=== PATIENT | female | born 1995 | race Caucasian/White ===

== ENCOUNTER 2017-03-22 16:28 | Emergency (ER) | payer BC, OTHER ==
[2017-03-22 16:34] VITALS: TEMP 99
--- NOTE | 2017-03-22 17:08 | EDPHY ---
H & P Stated Complaint: Inflammation @ port x 2 wks Time Seen by Provider: 03/22/17 17:07 - Personal History LMP (Females 10-55): 1-7 Days Ago Current Tetanus Diphtheria and Acellular Pertussis (TDAP): Yes - Medical/Surgical History Other PMH: gastroparesis. tubal ligation. Ellers-Danlow syndrome. chronic headaches - Social History Smoking Status: Never smoked Constitutional: Initial Vital Signs Temperature (C) 37.2 C 03/22/17 16:30 Heart Rate 103 H 03/22/17 16:30 Respiratory Rate 18 03/22/17 16:30 Blood Pressure 121/83 H 03/22/17 16:30 O2 Sat (%) 98 03/22/17 16:30 O2 Delivery Mode Room Air Allergies/Adverse Reactions: nystatin Allergy (Intermediate, Verified 03/22/17 16:35) disroentation/confusion clonazepam [From Klonopin] Allergy (Mild, Verified 03/22/17 16:34) Itching levofloxacin [From Levaquin] Allergy (Mild, Verified 03/22/17 16:36) joint pain,mood effects ranitidine [From Zantac] Allergy (Mild, Verified 03/22/17 16:34) Itching latex Allergy (Unknown, Verified 03/22/17 16:36) dermabond Allergy (Uncoded 03/22/17 16:36) paper tape Allergy (Uncoded 03/22/17 16:36) Home Medications: Medication Instructions Recorded Albuterol Sulfate [Proventil Hfa] 6.7 gm IH 03/22/17 Amphet Asp and D/Amphet [Adderall 10 mg PO 03/22/17 10 MG (*)] Baclofen [Baclofen 10 mg (*)] 10 mg PO TID 03/22/17 Control Pill 03/22/17 Chlorzoxazone [Lorzone] 375 mg PO TID 03/22/17 Diazepam [Valium 5 MG (*)] 5 mg PO 03/22/17 Doxycycline Hyclate 100 mg PO BID #20 tablet 03/22/17 LORazepam [Ativan (*)] 1 mg PO 03/22/17 Levalbuterol 0.63 mg [Xopenex 0.63 mg IH 03/22/17 0.63MG Neb (*)] Mupirocin 2% [Bactroban 2%] 15 gm TP BID #1 oint 03/22/17 Ns [NS IV 1000ml (*)] 0 ml IV CONT 03/22/17 Ondansetron HCl Pf [Zofran 4 mg 2 mg IV Q4 03/22/17 Inj (*)] tiZANidine HCL [Zanaflex] 4 mg PO 03/22/17 Medical Decision Making ED Course/Re-evaluation: CHIEF COMPLAINT: Cyst over port HISTORY OF PRESENT ILLNESS: The patient is a 21 y/o female with a history of Moon's Danlos syndrome and gastroparesis complaining of a cyst overlying her port. She uses her port to self-administer IV fluids and Zofran five times per week to treat her gastroparesis. She has been unable to access the port since developing what she believes is a cyst. She has previously developed cystic acne on her chest, but never over the port. She has treated it with chlorhexidine washes and Neosporin without improvement. She has since developed some mild pain "radiating into the port." She notes some recent nasal congestion , but denies systemic illness symptoms. REVIEW OF SYSTEMS: A 10 point review of systems was performed and is negative with the exception of the elements mentioned in the history of present illness. PHYSICAL EXAM: HR, BP, O2 Sat, RR. Temp noted General Appearance: Alert, well hydrated, appropriate, and non-toxic appearing. Head: Atraumatic without scalp tenderness or obvious injury Eyes: Pupils equal, round, reactive to light and accommodation, EOMI, no trauma , no injection. Nose: Atraumatic, no rhinorrhea, clear. Throat: There is no erythema or exudates, no lesions, normal tonsils, mucus membranes moist. Neck: Supple, nontender, no lymphadenopathy. Respiratory: No retractions, no distress, no wheezes, and no accessory muscle use. Lungs are clear to auscultation bilaterally. Cardiovascular: Regular rate and rhythm, no murmurs, rubs, or gallops. Good capillary refill all extremities. Gastrointestinal: Abdomen is soft, nontender, non-distended, no masses, no rebound, no guarding, no peritoneal signs. Musculoskeletal: Normal active ROM of all extremities, atraumatic. Neurological: Alert, appropriate, and interactive. The patient has non-focal cranial nerves, motor, sensory, and cerebellar exam. Skin: No rashes, good turgor, no nodules on palpation. Left chest port with small overlying indurated and tender area. Past medical history: Moon's Danlos syndrome, gastroparesis Past surgical history: Port placed by vascular clinic in [place] Family history: noncontributory Social history: Friend at bedside. Nonsmoker. DIFFERENTIAL DIAGNOSIS: The differential diagnosis for the patient's symptoms included but was not limited to cystic acne, cellulitis, port complication, abscess. MEDICAL DECISION MAKING: This is a 21 y/o female with a history of Ehler's Danlos syndrome and gastroparesis who presents with a small indurated area over her left chest port that has become painful and obstructive over the last 2 weeks. No evidence of systemic illness. I think it's likely she has a small localized infection at the site and will prescribe doxycycline and topical mupirocin. She will be referred to Dr. Vargas for follow up. Return precautions discussed. 1721: Consulted with Dr. Vargas, surgeon. She will see patient at 3:15pm on Thursday in her office. - Data Points Medications Given: Discontinued Medications Doxycycline Hyclate (Doxycycline Hyclate) 100 mg PO EDNOW ONE PRN Reason: Protocol Stop: 03/22/17 17:22 Last Admin: 03/22/17 17:34 Dose: Not Given Departure - Departure Disposition: Home, Routine, Self-Care Clinical Impression: Cystic acne Vascular port complication Qualifiers: Encounter type: initial encounter Qualified Code(s): T82.9XXA - Unspecified complication of cardiac and vascular prosthetic device, implant and graft, initial encounter Condition: Good Instructions: Mupirocin (On the skin), Doxycycline (By mouth) Additional Instructions: 1. Take doxycycline as prescribed. Be sure to complete the entire prescription. 2. Apply Bactroban ointment to affected areas as prescribed. 3. Follow up with Dr. Vargas, surgeon, at 3:15pm on Thursday at her office. 4. Return to the ED for any worsening of condition. Referrals: Malina Sepulveda MD [Primary Care Provider] - As per Instructions Flora Vargas MD [Medical Doctor] - As per Instructions Prescriptions: Doxycycline Hyclate 100 mg PO BID #20 tablet Mupirocin 2% [Bactroban 2%] 15 gm TP BID #1 oint Report Scribed for: Hadley Matthews Report Scribed by: Kelly Goddard Date of Report: 03/22/17 Time of Report: 17:16
[2017-03-22] MEDS ORDERED: DOXYCYCLINE HYCLATE 100 MG CAP/TAB PO ONE (17:21)
[2017-03-22 17:33] VITALS: BP 96/69; PULSE 82; RESP 16; O2SAT 95
== END 2017-03-22 17:33 | disposition home or self-care (01) ==
DX: T82.9XXA Unspecified complication of cardiac and vascular prosthetic device, implant and graft, initial encounter (principal); L70.0 Acne vulgaris; Z91.040 Latex allergy status; Y82.8 Other medical devices associated with adverse incidents

== ENCOUNTER → 2017-04-10 | Day surgery (SDC) | payer BC, OTHER ==
[~2017-04-10] MED LIST: ALBUTEROL HFA ANES ONLY 200 PUFFS/8.5 GM MDI IH ONE; BUPIVACAINE 0.5% 30 ML SDV ONE; DEXAMETHASONE 4 MG/ML VIAL ONE; HYDROCODONE/APAP 5/325 TAB PO PRN; HYDROCORTISONE 100 MG/2 ML VIAL ONE; LIDOCAINE 1% 2 ML INJ ID PRN; LIDOCAINE 1% 300 MG/30 ML SDV ONE; LIDOCAINE 2% 5 ML SDV ONE; LR 1,000 ML IV ONE; LR 500 ML IV PRN; MEPERIDINE 25 MG/ML SYR IVP PRN; MIDAZOLAM 2 MG/2 ML VIAL IVP ONE; MIDAZOLAM 2 MG/2 ML VIAL ONE; NALOXONE HCL 0.4 MG/ML INJ IVP PRN; ONDANSETRON 4 MG/2 ML VIAL IVP PRN; ONDANSETRON 4 MG/2 ML VIAL ONE; PROMETHAZINE HCL 25 MG/ML INJ IVP PRN; PROPOFOL/EMULSION 500 MG/50 ML BOTTLE IV ONE; ceFAZolin 2 GM/SWFI 2 GM/20 ML SYR IVP ONE; fentaNYL 100 MCG/2 ML INJ ONE
--- NOTE | 2017-04-10 08:32 | GHP ---
[f rep st] PREOP HISTORY AND PHYSICAL DATE OF ADMISSION: 04/10/2017 Date of surgery is today, 04/10/2017. CHIEF COMPLAINT: Cyst over left PowerPort. HISTORY OF PRESENT ILLNESS: The patient is a pleasant 21-year-old woman with Moon-Danlos syndrome, who presented to our office with a complaint of a nonhealing cyst overlying her left PowerPort. She typically leaves her port access for several days to receive IV fluids; however, over the past sever al weeks, every time she would try to de-access her port, she would develop an acne-like cyst at the de-access site. This usually takes several weeks to heal; however, this most recent time has not hea led in 3 weeks. She is unable to re-access the port to receive her IV fluids with this wound in plac e. She does have acne in other places of her body including her face, chest, back, and arm. She was seen in the emergency room on 03/22/2017, at which time she was prescribed doxycycline. She has rem ained on that since that time. She denies any systemic symptoms of infection including fevers, chill s, sweats, fatigue. She denies any red streaking. She denies any open wound or purulence. PAST MEDICAL HISTORY: Gastroparesis, Moon-Danlos syndrome, chronic headaches. PAST SURGICAL HISTORY: Diagnostic laparoscopy. FAMILY HISTORY: None. ALLERGIES: Nystatin, clonazepam, levofloxacin, ranitidine, latex, Dermabond, paper tape. SOCIAL HISTORY: She denies tobacco, alcohol, or recreational drug use. She recently moved to 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 REVIEW OF SYSTEMS: 10-point review of systems negative aside from HPI. PHYSICAL EXAMINATION: GENERAL: Well-developed, well-nourished woman in no acute distress, accompani ed by boyfriend. HEENT: Normocephalic, atraumatic. No hearing deficits. Pupils equal and round. No scleral icterus. Mucous membranes moist. NECK: Trachea midline. RESPIRATORY: Clear to auscult ation bilaterally. No increased work of breathing. CARDIOVASCULAR: Regular rate and rhythm. No pe ripheral edema. SKIN: There is a small indurated erythematous nodule overlying her left chest PowerP ort. No other nodular or cystic areas at this time. PSYCH: Mood and affect normal. NEURO: Grossl y intact. 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 At this time, we recommended removal of the left PowerPort with the replacement of a right-side d PowerPort. We discussed risks of surgery including, but not limited to, heart attack, stroke, bloo d clots or . We discussed risk of infection, bleeding, pneumothorax, need for device removal. She understands the risks and would like to proceed. The patient was additionally seen by Dr. Flora Vargas. /[id number]/MODL
--- NOTE | 2017-04-10 10:05 | PDHPUP ---
History & Physical Update H&P update statement: This history and physical update is based on an assessment of the patient which was completed after admission or registration (within 24 hours), but prior to the surgery/procedure. H&P update: H&P reviewed & patient examined H&P changes: patient developed sore throat and cough, boyfriend had recent URI too. No fevers.
--- NOTE | 2017-04-10 10:14 | PDANEPAE ---
ANE History of Present Illness Patient presents for Port Placement ANE Past Medical History - Cardiovascular History Hx Hypertension: No Hx Arrhythmias: No Hx Chest Pain: No Hx Coronary Artery / Peripheral Vascular Disease: No Hx CHF / Valvular Disease: No Hx Palpitations: No Cardiovascular History Comment: bp runs low, hr runs high d/t dysautonomia - Pulmonary History Hx COPD: No Hx Asthma/Reactive Airway Disease: Yes Hx Recent Upper Respiratory Infection: No Hx Oxygen in Use at Home: No Hx Sleep Apnea: No Sleep Apnea Screening Result - Last Documented: Negative Pulmonary History Comment: asthma- instructed pt to bring rescue inhaler with her - Neurologic History Hx Cerebrovascular Accident: No Hx Seizures: No Hx Dementia: No Neurologic History Comment: tremors. dysautonomia - Endocrine History Hx Diabetes: No Endocrine History Comment: enlarged thyroid - Renal History Hx Renal Disorders: No Renal History Comment: retains a lot of fluid - Liver History Hx Hepatic Disorders: No - Neurological & Psychiatric Hx Hx Neurological and Psychiatric Disorders: Yes Neurological / Psychiatric History Comment: anxiety. depression. medical ptsd - Cancer History Hx Cancer: No - Congenital Disorder History Hx Congenital Disorders: No - GI History Hx Gastrointestinal Disorders: Yes Gastrointestinal History Comment: reflux. severe chronic constipation. gastroparesis. difficulty swallowing with large quantities of pills. slow motility to small and large bowel - Other Health History Other Health History: facial piercings- pt will place plastic retainers in for surgery. bruises easily- obie-danlos syndrome - Chronic Pain History Chronic Pain: No - Surgical History Prior Surgeries: pe tubes 1998. port placement. diagnostic and tubal ligation. midline placed x2- not centrally accessed ANE Review of Systems Review of Systems: - Exercise capacity METS (RN): 4 METS ANE Patient History - Allergies Allergies/Adverse Reactions: nystatin Allergy (Intermediate, Verified 04/09/17 17:13) disorientation/confusion clonazepam [From Klonopin] Allergy (Mild, Verified 04/09/17 17:13) Itchy palms, face and mouth levofloxacin [From Levaquin] Allergy (Mild, Verified 04/09/17 17:13) joint pain, mood swings, random hysterical crying ranitidine [From Zantac] Allergy (Mild, Verified 04/09/17 17:13) Itchy palms, face and mouth latex Allergy (Unknown, Verified 04/09/17 17:13) sensitivity nut - unspecified Allergy (Verified 04/09/17 17:14) Anaphylaxis peanut Allergy (Verified 04/09/17 17:14) Anaphylaxis dermabond Allergy (Uncoded 04/09/17 17:13) sensitivity paper tape Allergy (Uncoded 04/09/17 17:14) [place] - Home Medications Home medications: home medication list seen and reviewed Home Medications: Amphet Asp and D/Amphet [Adderall 10 MG (*)] 03/22/17 [Last Taken 04/09/17] Control Pill 03/22/17 [Last Taken 04/09/17] Chlorzoxazone [Lorzone] 03/22/17 [Last Taken Unknown] Diazepam [Valium 5 MG (*)] 03/22/17 [Last Taken 04/09/17] LORazepam [Ativan (*)] 03/22/17 [Last Taken 04/09/17] tiZANidine HCL [Zanaflex] 03/22/17 [Last Taken 04/09/17] Doxycycline Hyclate 04/09/17 [Last Taken 04/10/17] Herbals/Supplements -Info Only 04/09/17 [Last Taken 04/10/17] Mupirocin 2% [Bactroban 2%] 04/09/17 [Last Taken 04/09/17] - NPO status NPO Since - Liquids (Date): 04/10/17 NPO Since - Liquids (Time): 08:30 NPO Since - Solids (Date): 04/09/17 NPO Since - Solids (Time): 23:30 - Smoking Hx Smoking Status: Former smoker - Family Anes Hx Family Hx Anesthesia Complications: mother has similiar symptoms ANE Labs/Vital Signs - Vital Signs Blood Pressure: 123/89 Heart Rate: 120 Respiratory Rate: 18 O2 Sat (%): 98 Height: 154.94 cm Weight: 45.813 kg ANE Physical Exam - Airway Neck exam: FROM Mallampati Score: Class 1 Mouth exam: normal dental/mouth exam - Pulmonary Pulmonary: no respiratory distress - Cardiovascular Cardiovascular: regular rate and rhythym - ASA Status ASA Status: II ANE Anesthesia Plan Anesthesia Plan: GA w LMA (RBA discussed)
[2017-04-10] MEDS: fentaNYL 100 MCG/2 ML INJ IVP PRN ×4 (11:40→12:11)
--- NOTE | 2017-04-10 11:56 | POSTANESTH ---
Post Anesthetic Evaluation Cardiovascular Status: Normal, Stable Respiratory Status: Normal, Stable Level of Consciousness/Mental Status: Can Participate in Eval Pain Control: Adequate, Prn Tx Ordered Nausea/Vomiting Control: Adequate, Prn Tx Ordered Complications Possibly Related to Anesthesia: None Noted
[2017-04-10 12:42] VITALS: PULSE 93; RESP 16; TEMP 98.1
[2017-04-10 13:18] VITALS: BP 113/74; O2SAT 95
== END | disposition home or self-care (01) ==
LOC: FSGY 09:11
PROVIDERS: ATTEND Surgery
PROC: 0JPT0XZ Removal of Tunneled Vascular Access Device from Trunk Subcutaneous Tissue and Fascia, Open Approach (ICD-10-PCS; principal; 2017-04-10 11:00)
PROC: 0JPT03Z Removal of Infusion Device from Trunk Subcutaneous Tissue and Fascia, Open Approach (ICD-10-PCS; principal; 2017-04-10 11:00)
PROC: 0JH60XZ Insertion of Tunneled Vascular Access Device into Chest Subcutaneous Tissue and Fascia, Open Approach (ICD-10-PCS; principal; 2017-04-10 11:00)
PROC: 02HV33Z Insertion of Infusion Device into Superior Vena Cava, Percutaneous Approach (ICD-10-PCS; principal; 2017-04-10 11:00)
DX: T82.898A Other specified complication of vascular prosthetic devices, implants and grafts, initial encounter (principal); L70.9 Acne, unspecified; Q79.6 Ehlers-Danlos syndromes; J45.909 Unspecified asthma, uncomplicated
CPT/HCPCS: C1788; J0690; J1100; J1642; J2250; J2405; J2704; J3010

== ENCOUNTER → 2017-04-15 | Outpatient (CLI) | payer OTHER | LOC: FIMAGING 10:49 | PROVIDERS: ATTEND Family Medicine | DX: R05 Cough (principal) ==

== ENCOUNTER 2017-04-19 12:10 | Emergency (ER) | payer OTHER ==
[2017-04-19 14:50] LABS: % IMMATURE GRANULYOCYTES 0.3 % (0.0-1.1); ABSOLUTE IMMATURE GRANULOCYTES 0.03 10^3/uL (0.00-0.10); ADD DIFF? NO; ADD MORPH? NO; ADD SCAN? NO; ATYPICAL LYMPHOCYTE FLAG 10 (0-99); FRAGMENT RBC FLAG 0 (0-99); HEMATOCRIT 47.4 % (38.0-47.0); HEMOGLOBIN 16.4 g/dL (12.6-16.3); LEFT SHIFT FLG 0 (0-99); LIPEMIA HEMOLYSIS FLAG 90 (0-99); MEAN CELL HEMOGLOBIN 30.8 pg (27.9-34.1); MEAN CELL HEMOGLOBIN CONCENTR. 34.6 g/dL (32.4-36.7); MEAN CELL VOLUME 89.1 fL (81.5-99.8); MEAN PLATELET VOLUME 9.8 fL (8.7-11.7); PLATELET CLUMPS FLAG 10 (0-99); PLATELET COUNT 330 10^3/uL (150-400); RED BLOOD CELL COUNT 5.32 10^6/uL (4.18-5.33)
[2017-04-19 15:07] LABS: ANION GAP 12 mEq/L (8-16); CALCIUM 10.1 mg/dL (8.5-10.4); CARBON DIOXIDE 22 mEq/l (22-31); CHLORIDE 107 mEq/L (97-110); CREATININE 0.7 mg/dL (0.6-1.0); GLOMERULAR FILTRATION RATE > 60; GLUCOSE 74 mg/dL (70-100); POTASSIUM 4.4 mEq/L (3.5-5.2); SODIUM 141 mEq/L (134-144)
[2017-04-19] MEDS ORDERED: IOPAMIDOL (ISOVUE 370) 100 ML BTL IV ONE (16:21)
[2017-04-19] MEDS ORDERED: DEXAMETHASONE 10 MG/ML VIAL ONE (17:03)
[2017-04-19] MEDS ORDERED: DEXAMETHASONE 10 MG/ML VIAL IVP ONE (17:04)
--- NOTE | 2017-04-19 17:34 | EDPHY ---
H & P Time Seen by Provider: 04/19/17 14:09 HPI/ROS: CHIEF COMPLAINT: Cough, chest pain HISTORY OF PRESENT ILLNESS: 21-year-old female presents to the emergency department with productive cough and chest pain. The patient had a negative chest x-ray earlier this week however continues to have productive cough. She was seen at urgent care who sent her here to the emergency department to rule out possible blood clot. She has no pain or swelling in her lower legs. No recent travel. She does have pleuritic chest pain and feels that she is not able to take a big deep breath there. She has been using her inhaler every 4 hours. No fevers or chills. No recent travel. No reported trauma. No abdominal pain or vomiting. Her boyfriend had similar symptoms although his symptoms ever now resolved. REVIEW OF SYSTEMS: Constitutional: No fever, no chills. Eyes: No double or blurry vision. ENT: No sore throat. Respiratory: As above. Cardiac: As above. Gastrointestinal: No abdominal pain, vomiting or diarrhea. Genitourinary: No dysuria. Musculoskeletal: No neck or back pain. Skin: No rashes. Neurological: No headache. Past Medical/Surgical History: Moon-Danlos syndrome, autoimmune disease , gastroparesis requiring infusion every 3 weeks. Social History: Single Smoking Status: Former smoker Physical Exam: General Appearance: Alert, no distress. 97% on room air. Afebrile. Eyes: Pupils equal and round. Extraocular motions are all intact. ENT: Mouth: Mucous membranes moist. Respiratory: No wheezing, rhonchi, or rales, lungs are clear to auscultation. Port noted to the right upper anterior chest wall. Patient has reproducible pain with palpation to central aspect of her chest overlying the sternum and both the left and right lateral borders. Cardiovascular: Regular rate and rhythm. Gastrointestinal: Abdomen is soft and nontender, no masses, no rebound or guarding, bowel sounds normal. Neurological: Alert and oriented x 3, cranial nerves II through XII grossly intact Skin: Warm and dry, no rashes. Musculoskeletal: Nontender to palpate along the cervical, thoracic or lumbar spine. Neck is supple. Extremities: Full range of motion and no peripheral edema. Psychiatric: Patient is oriented X 3, there is no agitation. Constitutional: Initial Vital Signs Temperature (C) 37.1 C 04/19/17 12:14 Heart Rate 104 H 04/19/17 12:14 Respiratory Rate 20 04/19/17 12:14 Blood Pressure 113/72 04/19/17 12:14 O2 Sat (%) 97 04/19/17 12:14 O2 Delivery Mode Room Air Allergies/Adverse Reactions: nystatin Allergy (Intermediate, Verified 04/19/17 12:20) disorientation/confusion clonazepam [From Klonopin] Allergy (Mild, Verified 04/19/17 12:20) Itchy palms, face and mouth levofloxacin [From Levaquin] Allergy (Mild, Verified 04/19/17 12:20) joint pain, mood swings, random hysterical crying ranitidine [From Zantac] Allergy (Mild, Verified 04/19/17 12:20) Itchy palms, face and mouth latex Allergy (Unknown, Verified 04/19/17 12:20) sensitivity nut - unspecified Allergy (Verified 04/19/17 12:20) Anaphylaxis peanut Allergy (Verified 04/19/17 12:20) Anaphylaxis dermabond Allergy (Uncoded 04/19/17 12:20) sensitivity paper tape Allergy (Uncoded 04/19/17 12:20) [place] Home Medications: Medication Instructions Recorded Amphet Asp and D/Amphet [Adderall 03/22/17 10 MG (*)] Control Pill 03/22/17 Chlorzoxazone [Lorzone] 750 mg PO BID 03/22/17 Diazepam [Valium 5 MG (*)] 03/22/17 LORazepam [Ativan (*)] 03/22/17 tiZANidine HCL [Zanaflex] 03/22/17 Doxycycline Hyclate 04/09/17 Herbals/Supplements -Info Only 04/09/17 Mupirocin 2% [Bactroban 2%] 04/09/17 Hydrocodone/APAP 5/325 [[place] 1 - 2 tab PO Q6H PRN #15 tab 04/10/17 5/325 (*)] Albuterol Sulfate 5 mg IH 04/19/17 Baclofen [Baclofen 10 mg (*)] 10 mg PO TID 04/19/17 Ondansetron HCl [Zofran] 4 mg PO 04/19/17 Medical Decision Making - Diagnostics Imaging Results: Imaging Impressions Chest/Thorax CTA 04/19/17 15:10 Impression: 1. There is no CT evidence for pulmonary artery thromboembolic disease. 2. Normal CT appearance of the thoracic aorta. Findings were discussed with Cristina Seth M.D. at 16:16, on 04/19/2017. Imaging: Discussed imaging studies w/ orthopedically impaired teacher Radiologist ED Course/Re-evaluation: Because this patient has significant risk for pulmonary embolism. She has a port placed which has clotted multiple times. CT pulmonary angiogram was ordered. I discussed the pros and cons of CT imaging including radiation exposure the patient agreed. CT pulmonary angiogram reveals no evidence of dissection or pulmonary embolism. Patient will be discharged home. She was encouraged to continue her inhaler. She declined prednisone. She was given a dose of Decadron through her IV and encouraged to have close follow-up with primary care provider. Clinically I do not think this patient has pneumonia. She has no fever. CT imaging does not reveal any evidence of pneumonia. Differential Diagnosis: Shortness of breath including but not limited to pulmonary infectious process, COPD, asthma, pulmonary embolus and congestive heart failure. - Data Points Laboratory Results: Laboratory Results 04/19/17 14:40 04/19/17 14:40 04/19/17 04/19/17 04/19/17 14:40 14:40 14:40 WBC 10.83 10^3/uL H 10^3/uL (3.80-9.50) RBC 5.32 10^6/uL 10^6/uL (4.18-5.33) Hgb 16.4 g/dL H g/dL (12.6-16.3) Hct 47.4 % H % (38.0-47.0) MCV 89.1 fL fL (81.5-99.8) MCH 30.8 pg pg (27.9-34.1) MCHC 34.6 g/dL g/dL (32.4-36.7) RDW 12.0 % % (11.5-15.2) Plt Count 330 10^3/uL 10^3/uL (150-400) MPV 9.8 fL fL (8.7-11.7) Neut % (Auto) 54.3 % % (39.3-74.2) Lymph % (Auto) 35.2 % % (15.0-45.0) [place] % (Auto) 6.4 % % (4.5-13.0) Eos % (Auto) 3.0 % % (0.6-7.6) Baso % (Auto) 0.8 % % (0.3-1.7) Nucleat RBC Rel Count 0.0 % % (0.0-0.2) Absolute Neuts (auto) 5.89 10^3/uL 10^3/uL (1.70-6.50) Absolute Lymphs (auto) 3.81 10^3/uL H 10^3/uL (1.00-3.00) Absolute Monos (auto) 0.69 10^3/uL 10^3/uL (0.30-0.80) Absolute Eos (auto) 0.32 10^3/uL 10^3/uL (0.03-0.40) Absolute Basos (auto) 0.09 10^3/uL 10^3/uL (0.02-0.10) Absolute Nucleated RBC 0.00 10^3/uL 10^3/uL (0-0.01) Immature Gran % 0.3 % % (0.0-1.1) Immature Gran # 0.03 10^3/uL 10^3/uL (0.00-0.10) Sodium 141 mEq/L mEq/L (134-144) Potassium 4.4 mEq/L mEq/L (3.5-5.2) Chloride 107 mEq/L mEq/L (97-110) Carbon Dioxide 22 mEq/l mEq/l (22-31) Anion Gap 12 mEq/L mEq/L (8-16) BUN 12 mg/dL mg/dL (7-23) Creatinine 0.7 mg/dL mg/dL (0.6-1.0) Estimated GFR > 60 Glucose 74 mg/dL mg/dL (70-100) Calcium 10.1 mg/dL mg/dL (8.5-10.4) Beta HCG, Qual NEGATIVE Medications Given: Discontinued Medications Dexamethasone (Decadron Injection) 10 mg IVP EDNOW ONE Stop: 04/19/17 17:05 Last Admin: 04/19/17 17:05 Dose: 10 mg Departure - Departure Disposition: Home, Routine, Self-Care Clinical Impression: Cough, Costochondritis Condition: Good Instructions: Costochondritis (ED), Acute Cough (ED) Additional Instructions: Continue your inhaler as prescribed. Your given Decadron IV in the emergency department. You should have close follow-up with her primary care provider. You have no evidence of pulmonary embolism or dissection on chest CT. Return to the emergency department if you develop chest pain, shortness of breath, fever, or if you feel worse in any way. Referrals: Malina Sepulveda MD [Primary Care Provider] - As per Instructions Stand Alone Forms: Work Excuse
[2017-04-19 17:44] VITALS: BP 128/81; PULSE 96; RESP 18; TEMP 98.4; O2SAT 99
== END 2017-04-19 17:41 | disposition home or self-care (01) ==
DX: M94.0 Chondrocostal junction syndrome [Tietze] (principal); Z87.891 Personal history of nicotine dependence; Z91.010 Allergy to peanuts; Z91.040 Latex allergy status
CPT/HCPCS: 96374; J1100; Q9967

== ENCOUNTER → 2017-07-15 | Outpatient (CLI) | payer OTHER | LOC: FCPNEURO 21:30 | PROVIDERS: ATTEND Student in an Organized Health Care Education/Training Program | DX: G47.30 Sleep apnea, unspecified (principal); R40.0 Somnolence; G47.00 Insomnia, unspecified; R51 Headache; G47.20 Circadian rhythm sleep disorder, unspecified type; R10.2 Pelvic and perineal pain; F90.9 Attention-deficit hyperactivity disorder, unspecified type; F32.9 Major depressive disorder, single episode, unspecified; F41.9 Anxiety disorder, unspecified; F43.10 Post-traumatic stress disorder, unspecified; Q79.6 Ehlers-Danlos syndromes ==

== ENCOUNTER → 2017-10-22 | Outpatient (CLI) | payer MEDICAID | LOC: FIMAGING 07:20 | DX: J32.9 Chronic sinusitis, unspecified (principal); Q04.8 Other specified congenital malformations of brain; R41.89 Other symptoms and signs involving cognitive functions and awareness; R51 Headache; Q79.6 Ehlers-Danlos syndromes; M54.81 Occipital neuralgia; N64.52 Nipple discharge ==

== ENCOUNTER 2017-10-31 17:17 | Emergency (ER) | payer MEDICAID ==
--- NOTE | 2017-10-31 18:15 | EDPHY ---
H & P Time Seen by Provider: 10/31/17 17:40 HPI/ROS: Chief complaint. Seizure activity, blurry vision HPI. 22-year-old female presents emergency department with 2 day history of seizure-type episodes. She has chronic tremulousness however her tremors have increased and apparently progressed to more significant jerking. Patient was mostly conscious through these tremors over the last several days but did have brief period of loss of consciousness. She has increased spasm of her eyelids but also complains of blurry vision to both eyes. The symptoms are all new in the last 2 days. Patient had MRI of her neck in head October 22 which was normal. She has no chest pain, shortness of breath, abdominal pain. Some nausea which is chronic. Denies focal weakness or paresthesias. No fever. No head injury. ROS Constitutional. no fever/chills, no weakness Eyes. Blurry vision ENT. no sore throat, no nasal drainage Cardiovascular. no chest pain Respiratory. no shortness of breath, no cough Abdominal. no abdominal pain, no nausea/vomiting, no diarrhea . no problems urinating MS. no calf pain/swelling, no neck/back pain, no joint pain Skin. no rash Lymph. no swollen glands Neuro. 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 ENT, Mouth: Mucous membranes are moist. Respiratory: There are no retractions, lungs are clear to auscultation. Cardiovascular: Regular rate and rhythm. Gastrointestinal: Abdomen is soft and nontender, no masses, bowel sounds normal. Neurological: Awake and alert, sensory and motor exams grossly normal. Skin: Warm and dry, no rashes. Musculoskeletal: Neck is supple nontender. Extremities symmetrical, full range of motion. Psychiatric: Patient is oriented X 3, there is no agitation. Constitutional: Initial Vital Signs Temperature (C) 37.0 C 10/31/17 17:21 Heart Rate 93 10/31/17 17:21 Respiratory Rate 18 10/31/17 17:21 Blood Pressure 86/62 L 10/31/17 17:21 O2 Sat (%) 95 10/31/17 17:21 O2 Delivery Mode Room Air Allergies/Adverse Reactions: nystatin Allergy (Intermediate, Verified 04/19/17 12:20) disorientation/confusion clonazepam [From Klonopin] Allergy (Mild, Verified 04/19/17 12:20) Itchy palms, face and mouth levofloxacin [From Levaquin] Allergy (Mild, Verified 04/19/17 12:20) joint pain, mood swings, random hysterical crying ranitidine [From Zantac] Allergy (Mild, Verified 04/19/17 12:20) Itchy palms, face and mouth latex Allergy (Unknown, Verified 04/19/17 12:20) sensitivity nut - unspecified Allergy (Verified 04/19/17 12:20) Anaphylaxis peanut Allergy (Verified 04/19/17 12:20) Anaphylaxis dermabond Allergy (Uncoded 04/19/17 12:20) sensitivity paper tape Allergy (Uncoded 04/19/17 12:20) [place] Home Medications: Medication Instructions Recorded Amphet Asp and D/Amphet [Adderall 03/22/17 10 MG (*)] Control Pill 03/22/17 Chlorzoxazone [Lorzone] 750 mg PO BID 03/22/17 Diazepam [Valium 5 MG (*)] 03/22/17 LORazepam [Ativan (*)] 03/22/17 tiZANidine HCL [Zanaflex] 03/22/17 Doxycycline Hyclate 04/09/17 Herbals/Supplements -Info Only 04/09/17 Mupirocin 2% [Bactroban 2%] 04/09/17 Hydrocodone/APAP 5/325 [[place] 1 - 2 tab PO Q6H PRN #15 tab 04/10/17 5/325 (*)] Albuterol Sulfate 5 mg IH 04/19/17 Baclofen [Baclofen 10 mg (*)] 10 mg PO TID 04/19/17 Ondansetron HCl [Zofran] 4 mg PO 04/19/17 Medical Decision Making - Diagnostics Imaging Results: Imaging Impressions Head CT 10/31/17 18:17 Impression: Normal CT of the head. Specifically, a seizure focus is not identified. Results called and discussed with PERLITA BORRERO M.D. on 10/31/2017 at 19:[address] head is normal. No evidence for intracranial bleeding. Reviewed by me and discussed with Dr. Rowland Procedures: IV normal saline, monitor ED Course/Re-evaluation: Re-evaluation 7:15 p.m.. And I discussed imaging and lab results. We discussed treatment plan including criteria for return and importance of follow- up and further evaluation. She expresses understanding and agreement She now tells me she is having neck pain. She is offered Toradol but refuses. [id number] they tell the nurse that they would like to leave a not finish the IV bag. I also do not want any more men in the room as it is causing emotional trauma. Differential Diagnosis: I think this likely psychiatric problem. She has had normal MRI and normal CT. Normal workup. I considered intracranial bleeding. I considered electrolyte abnormalities. There are no acute medical findings. - Data Points Laboratory Results: Laboratory Results 10/31/17 17:50 10/31/17 17:50 10/31/17 10/31/17 17:50 17:50 WBC 8.72 10^3/uL 10^3/uL (3.80-9.50) RBC 4.25 10^6/uL 10^6/uL (4.18-5.33) Hgb 13.0 g/dL g/dL (12.6-16.3) Hct 38.9 % % (38.0-47.0) MCV 91.5 fL fL (81.5-99.8) MCH 30.6 pg pg (27.9-34.1) MCHC 33.4 g/dL g/dL (32.4-36.7) RDW 12.2 % % (11.5-15.2) Plt Count 301 10^3/uL 10^3/uL (150-400) MPV 11.5 fL fL (8.7-11.7) Neut % (Auto) 43.8 % % (39.3-74.2) Lymph % (Auto) 36.2 % % (15.0-45.0) [place] % (Auto) 8.1 % % (4.5-13.0) Eos % (Auto) 10.7 % H % (0.6-7.6) Baso % (Auto) 1.0 % % (0.3-1.7) Nucleat RBC Rel Count 0.0 % % (0.0-0.2) Absolute Neuts (auto) 3.81 10^3/uL 10^3/uL (1.70-6.50) Absolute Lymphs (auto) 3.16 10^3/uL H 10^3/uL (1.00-3.00) Absolute Monos (auto) 0.71 10^3/uL 10^3/uL (0.30-0.80) Absolute Eos (auto) 0.93 10^3/uL H 10^3/uL (0.03-0.40) Absolute Basos (auto) 0.09 10^3/uL 10^3/uL (0.02-0.10) Absolute Nucleated RBC 0.00 10^3/uL 10^3/uL (0-0.01) Immature Gran % 0.2 % % (0.0-1.1) Immature Gran # 0.02 10^3/uL 10^3/uL (0.00-0.10) Sodium 141 mEq/L mEq/L (135-145) Potassium 4.2 mEq/L mEq/L (3.3-5.0) Chloride 107 mEq/L mEq/L (97-110) Carbon Dioxide 25 mEq/l mEq/l (22-31) Anion Gap 9 mEq/L mEq/L (8-16) BUN 11 mg/dL mg/dL (7-23) Creatinine 0.7 mg/dL mg/dL (0.6-1.0) Estimated GFR > 60 Glucose 93 mg/dL mg/dL (70-100) Calcium 9.0 mg/dL mg/dL (8.5-10.4) Medications Given: Discontinued Medications Sodium Chloride (Ns) 1,000 mls @ 0 mls/hr IV ONCE ONE; Wide Open PRN Reason: Protocol Stop: 10/31/17 18:18 Last Admin: 10/31/17 19:22 Dose: 1,000 mls Departure - Departure Disposition: Home, Routine, Self-Care Clinical Impression: Tremors of nervous system Condition: Good Instructions: Tremors (ED) Additional Instructions: Continue regular medications. Return for worsening symptoms. Follow up with your regular physician on Thursday without fail Referrals: Malina Sepulveda MD [Primary Care Provider] - 2-3 days without fail
[2017-10-31] MEDS ORDERED: NS 1,000 ML IV ONE (18:17)
[2017-10-31 18:25] LABS: PLATELET COUNT 301 10^3/uL (150-400)
[2017-10-31 20:00] VITALS: BP 93/65
== END 2017-10-31 20:01 | disposition home or self-care (01) ==
DX: R25.1 Tremor, unspecified (principal); E86.9 Volume depletion, unspecified; Z87.891 Personal history of nicotine dependence; Z91.010 Allergy to peanuts; Z91.040 Latex allergy status
CPT/HCPCS: 96374; J1642

== ENCOUNTER 2018-08-10 18:40 | Inpatient (IN) | payer MEDICAID ==
[2018-08-10] MEDS ORDERED: PROMETHAZINE HCL 25 MG/ML INJ IVP ONE (19:39)
[2018-08-10] MEDS ORDERED: NS 1,000 ML IV ONE ×2 (19:39)
[2018-08-10 20:14] LABS: PLATELET COUNT 369 10^3/uL (150-400)
[2018-08-10] MEDS ORDERED: ONDANSETRON DISINTEGRATING 4 MG TAB PO PRN (23:12)
[2018-08-10] MEDS ORDERED: ONDANSETRON 4 MG/2 ML VIAL IVP PRN (23:12)
[2018-08-10] MEDS ORDERED: ACETAMINOPHEN 325 MG TAB PO PRN (23:12)
[2018-08-10] MEDS ORDERED: NS 1,000 ML IV SCH (23:15)
--- NOTE | 2018-08-11 00:32 | EDPHY ---
H & P Stated Complaint: fever, abd pain, n/v/d - Personal History Current Tetanus/Diphtheria Vaccine: Yes Current Tetanus Diphtheria and Acellular Pertussis (TDAP): Yes - Medical/Surgical History Hx Asthma: Yes Hx Chronic Respiratory Disease: Yes Hx Diabetes: No Hx Cardiac Disease: No Hx Renal Disease: No Hx Cirrhosis: No Hx Alcoholism: No Hx HIV/AIDS: No Hx Splenectomy or Spleen Trauma: No Other PMH: gastroparesis. tubal ligation. Ellers-Danlow syndrome. chronic headaches. 04/10/17 new port, benzo dependence on a wean 10/23. endometriosis, cerebellar tonsillar ectopia. dysautonomia - Social History Smoking Status: Former smoker Time Seen by Provider: 08/10/18 19:27 HPI/ROS: Chief complaint: Sweating, abdominal pain, nausea, vomiting, diarrhea History of present illness: This is a 23-year-old female who presents to the emergency department for persistent sweating. Associated ongoing abdominal pain. Nausea and vomiting as well as diarrhea. Patient reports the symptoms have been worsening over the last few weeks if not longer. She feels that in addition to the symptoms causing her to feel poorly they are causing her to get very dehydrated. Within this last week she has had 2 previous visits to the [facility] Emergency Department. She was seen at her primary care doctor's office as well. She states every time she is seen in the emergency department she is IV hydrated, this helps her feel better and then she is discharged. However, she is unable to continue hydration at home and ends up returning to the ED. She has an extensive medical history with multiple medical problems although it sounds like she is struggling to get a diagnoses. Review of systems: A 10 point review of systems was obtained and other than described above was negative (Serg Gallardo) - Physical Exam Exam: General Appearance: Alert, unwell but nontoxic appearing. Eyes: Pupils equal and round no pallor or injection. ENT, Mouth: Mucous membranes moist. Respiratory: There are no retractions, lungs are clear to auscultation. Cardiovascular: Regular rate and rhythm. Gastrointestinal: Abdomen is soft and non tender, no masses, bowel sounds normal. Neurological: Alert and oriented. Strength and sensation intact and symmetrical. Tremulous. Skin: Warm and dry, no rashes. Diaphoretic. Musculoskeletal: Neck is supple non tender. Extremities are symmetrical, full range of motion. Psychiatric: Patient is oriented X 3, there is no agitation. (Serg Gallardo) Constitutional: Initial Vital Signs Temperature (C) 37 C 08/10/18 18:50 Heart Rate 106 H 08/10/18 18:50 Respiratory Rate 16 08/10/18 18:50 Blood Pressure 130/91 H 08/10/18 18:50 O2 Sat (%) 95 08/10/18 18:50 O2 Delivery Mode Room Air Allergies/Adverse Reactions: nystatin Allergy (Intermediate, Verified 04/19/17 12:20) disorientation/confusion clonazepam [From Klonopin] Allergy (Mild, Verified 04/19/17 12:20) Itchy palms, face and mouth levofloxacin [From Levaquin] Allergy (Mild, Verified 04/19/17 12:20) joint pain, mood swings, random hysterical crying ranitidine [From Zantac] Allergy (Mild, Verified 04/19/17 12:20) Itchy palms, face and mouth latex Allergy (Unknown, Verified 04/19/17 12:20) sensitivity nut - unspecified Allergy (Verified 04/19/17 12:20) Anaphylaxis peanut Allergy (Verified 04/19/17 12:20) Anaphylaxis dermabond Allergy (Uncoded 04/19/17 12:20) sensitivity paper tape Allergy (Uncoded 04/19/17 12:20) [place] Home Medications: Medication Instructions Recorded Control Pill 03/22/17 Chlorzoxazone [Lorzone] 750 mg PO BID 03/22/17 Diazepam [Valium 5 MG (*)] 03/22/17 tiZANidine HCL [Zanaflex] 03/22/17 Herbals/Supplements -Info Only 04/09/17 Albuterol Sulfate 5 mg IH 04/19/17 Baclofen [Baclofen 10 mg (*)] 10 mg PO TID 04/19/17 Progesterone 08/10/18 Reglan 08/10/18 Medical Decision Making ED Course/Re-evaluation: Patient is discussed with my primary supervising physician Dr. Naida Quinn. Patient presents to the emergency department with ongoing heavy sweating, abdominal pain, nausea, vomiting and diarrhea. This is her 3rd visit to an emergency department within the last week. She is feeling extremely dehydrated and unable to care for herself. Ultimately given the repeating cycle I feel it is best to admit her for IV hydration and further evaluation and care. The plan has been discussed with the patient who voiced understanding and agreement with it. (Serg Gallardo) Differential Diagnosis: Included but not limited to gastritis, gastroenteritis, electrolyte disturbances , infections of multiple etiologies including urinary tract infection, endocrine disorder (Serg Gallardo) - Data Points Laboratory Results: Laboratory Results 08/10/18 20:00 08/10/18 20:00 08/10/18 08/10/18 08/10/18 22:00 22:00 22:00 WBC RBC Hgb Hct MCV MCH MCHC RDW Plt Count MPV Neut % (Auto) Lymph % (Auto) [place] % (Auto) Eos % (Auto) Baso % (Auto) Nucleat RBC Rel Count Absolute Neuts (auto) Absolute Lymphs (auto) Absolute Monos (auto) Absolute Eos (auto) Absolute Basos (auto) Absolute Nucleated RBC Immature Gran % Immature Gran # ESR VBG Lactic Acid Sodium Potassium Chloride Carbon Dioxide Anion Gap BUN Creatinine Estimated GFR Glucose Calcium Magnesium 2.0 mg/dL mg/dL (1.6-2.3) Total Bilirubin 0.7 mg/dL mg/dL (0.1-1.4) Conjugated Bilirubin 0.4 mg/dL mg/dL (0.0-0.5) Unconjugated Bilirubin 0.3 mg/dL mg/dL (0.0-1.1) AST 32 IU/L IU/L (14-46) ALT 57 IU/L H IU/L (9-52) Alkaline Phosphatase 80 IU/L IU/L (38-126) Creatine Kinase 47 IU/L IU/L (0-156) C-Reactive Protein < 5.0 mg/L mg/L (<10.0) Total Protein 8.1 g/dL g/dL (6.3-8.2) Albumin 4.9 g/dL g/dL (3.5-5.0) TSH 1.960 uIU/mL uIU/mL (0.465-4.680) Free T4 1.87 ng/dL ng/dL (0.59-2.19) Free T3 4.17 pg/mL pg/mL (2.77-5.27) Beta HCG, Qual Urine Color YELLOW Urine Appearance CLEAR Urine pH 6.0 (5.0-7.5) Ur Specific [place] 1.013 (1.002-1.030) Urine Protein NEGATIVE (NEGATIVE) Urine Ketones 1+ H (NEGATIVE) Urine Blood NEGATIVE (NEGATIVE) Urine Nitrate NEGATIVE (NEGATIVE) Urine Bilirubin NEGATIVE (NEGATIVE) Urine Urobilinogen NEGATIVE EU EU (0.2-1.0) Ur Leukocyte Esterase NEGATIVE (NEGATIVE) Urine RBC 1-3 /hpf /hpf (0-3) Urine WBC 1-3 /hpf /hpf (0-3) Ur Epithelial Cells TRACE /lpf /lpf (NONE-1+) Urine Bacteria TRACE /hpf H /hpf (NONE SEEN) Hyaline Casts 1-5 /lpf /lpf (0-1) Urine Mucus TRACE /lpf /lpf (NONE-1+) Urine Glucose NEGATIVE (NEGATIVE) Nasal Influenza A PCR Nasal Influenza B PCR Urine Opiates Screen NEGATIVE (NEGATIVE) Urine Barbiturates NEGATIVE (NEGATIVE) Ur Phencyclidine Scrn NEGATIVE (NEGATIVE) Ur Amphetamine Screen NEGATIVE (NEGATIVE) U Benzodiazepines Scrn NON-NEGATIVE H (NEGATIVE) Urine Cocaine Screen NEGATIVE (NEGATIVE) U Marijuana (THC) Screen NON-NEGATIVE H (NEGATIVE) 08/10/18 08/10/18 08/10/18 20:00 20:00 20:00 WBC RBC Hgb Hct MCV MCH MCHC RDW Plt Count MPV Neut % (Auto) Lymph % (Auto) [place] % (Auto) Eos % (Auto) Baso % (Auto) Nucleat RBC Rel Count Absolute Neuts (auto) Absolute Lymphs (auto) Absolute Monos (auto) Absolute Eos (auto) Absolute Basos (auto) Absolute Nucleated RBC Immature Gran % Immature Gran # ESR VBG Lactic Acid 1.3 mmol/L mmol/L (0.7-2.1) Sodium 138 mEq/L mEq/L (135-145) Potassium 3.9 mEq/L mEq/L (3.5-5.2) Chloride 105 mEq/L mEq/L (97-110) Carbon Dioxide 20 mEq/l L mEq/l (22-31) Anion Gap 13 mEq/L mEq/L (6-14) BUN 9 mg/dL mg/dL (7-23) Creatinine 0.6 mg/dL mg/dL (0.6-1.0) Estimated GFR > 60 Glucose 84 mg/dL mg/dL (70-100) Calcium 10.2 mg/dL mg/dL (8.5-10.4) Magnesium Total Bilirubin Conjugated Bilirubin Unconjugated Bilirubin AST ALT Alkaline Phosphatase Creatine Kinase C-Reactive Protein Total Protein Albumin TSH Free T4 Free T3 Beta HCG, Qual NEGATIVE Urine Color Urine Appearance Urine pH Ur Specific [place] Urine Protein Urine Ketones Urine Blood Urine Nitrate Urine Bilirubin Urine Urobilinogen Ur Leukocyte Esterase Urine RBC Urine WBC Ur Epithelial Cells Urine Bacteria Hyaline Casts Urine Mucus Urine Glucose Nasal Influenza A PCR Nasal Influenza B PCR Urine Opiates Screen Urine Barbiturates Ur Phencyclidine Scrn Ur Amphetamine Screen U Benzodiazepines Scrn Urine Cocaine Screen U Marijuana (THC) Screen 08/10/18 08/10/18 20:00 19:54 WBC 17.08 10^3/uL H 10^3/uL (3.80-9.50) RBC 5.09 10^6/uL 10^6/uL (4.18-5.33) Hgb 15.2 g/dL g/dL (12.6-16.3) Hct 45.2 % % (38.0-47.0) MCV 88.8 fL fL (81.5-99.8) MCH 29.9 pg pg (27.9-34.1) MCHC 33.6 g/dL g/dL (32.4-36.7) RDW 12.2 % % (11.5-15.2) Plt Count 369 10^3/uL 10^3/uL (150-400) MPV 9.6 fL fL (8.7-11.7) Neut % (Auto) 62.6 % % (39.3-74.2) Lymph % (Auto) 26.5 % % (15.0-45.0) [place] % (Auto) 8.6 % % (4.5-13.0) Eos % (Auto) 1.3 % % (0.6-7.6) Baso % (Auto) 0.6 % % (0.3-1.7) Nucleat RBC Rel Count 0.0 % % (0.0-0.2) Absolute Neuts (auto) 10.70 10^3/uL H 10^3/uL (1.70-6.50) Absolute Lymphs (auto) 4.52 10^3/uL H 10^3/uL (1.00-3.00) Absolute Monos (auto) 1.47 10^3/uL H 10^3/uL (0.30-0.80) Absolute Eos (auto) 0.22 10^3/uL 10^3/uL (0.03-0.40) Absolute Basos (auto) 0.10 10^3/uL 10^3/uL (0.02-0.10) Absolute Nucleated RBC 0.00 10^3/uL 10^3/uL (0-0.01) Immature Gran % 0.4 % % (0.0-1.1) Immature Gran # 0.07 10^3/uL 10^3/uL (0.00-0.10) ESR 1 MM/HR MM/HR (0-20) VBG Lactic Acid Sodium Potassium Chloride Carbon Dioxide Anion Gap BUN Creatinine Estimated GFR Glucose Calcium Magnesium Total Bilirubin Conjugated Bilirubin Unconjugated Bilirubin AST ALT Alkaline Phosphatase Creatine Kinase C-Reactive Protein Total Protein Albumin TSH Free T4 Free T3 Beta HCG, Qual Urine Color Urine Appearance Urine pH Ur Specific [place] Urine Protein Urine Ketones Urine Blood Urine Nitrate Urine Bilirubin Urine Urobilinogen Ur Leukocyte Esterase Urine RBC Urine WBC Ur Epithelial Cells Urine Bacteria Hyaline Casts Urine Mucus Urine Glucose Nasal Influenza A PCR NEGATIVE FOR FLU A (NEGATIVE) Nasal Influenza B PCR NEGATIVE FOR FLU B (NEGATIVE) Urine Opiates Screen Urine Barbiturates Ur Phencyclidine Scrn Ur Amphetamine Screen U Benzodiazepines Scrn Urine Cocaine Screen U Marijuana (THC) Screen Medications Given: Acetaminophen (Tylenol) 650 mg PO Q4HRS PRN PRN Reason: Pain, Mild/Fever, Can Take PO Stop: 02/06/19 23:11 Last Admin: 08/11/18 02:10 Dose: 650 mg Baclofen (Baclofen) 10 mg PO DAILY FRANK Stop: 02/07/19 05:59 Last Admin: 08/11/18 06:33 Dose: 10 mg Dextrose/Sodium Chloride (D5w 1/2 Ns) 1,000 mls @ 100 mls/hr IV CONT FRANK Stop: 02/07/19 02:29 Last Admin: 08/11/18 02:29 Dose: 1,000 mls Discontinued Medications Sodium Chloride (Ns) 1,000 mls @ 0 mls/hr IV EDNOW ONE; Wide Open PRN Reason: Protocol Stop: 08/10/18 19:40 Last Admin: 08/10/18 20:06 Dose: 1,000 mls Sodium Chloride (Ns) 1,000 mls @ 0 mls/hr IV EDNOW ONE; Wide Open PRN Reason: Protocol Stop: 08/10/18 19:40 Last Admin: 08/10/18 20:07 Dose: 1,000 mls Sodium Chloride (Ns) 1,000 mls @ 75 mls/hr IV CONT FRANK Stop: 08/11/18 12:34 Last Admin: 08/11/18 00:50 Dose: 1,000 mls Promethazine HCl (Phenergan) 6.25 mg IVP EDNOW ONE Stop: 08/10/18 19:40 Last Admin: 08/10/18 20:07 Dose: 6.25 mg Departure - Departure Disposition: [facility] Inpatient Acute Clinical Impression: Vomiting and diarrhea Abdominal pain Qualifiers: Abdominal location: generalized Qualified Code(s): R10.84 - Generalized abdominal pain Condition: Good
[2018-08-11 01:02] LABS: CREATINE KINASE 47 IU/L (0-156)
[2018-08-11] MEDS: D5W 1/2 NS 1,000 ML IV SCH ×2 (02:29→16:39)
[2018-08-11 05:52] LABS: PLATELET COUNT 315 10^3/uL (150-400)
[2018-08-11] MEDS: BACLOFEN 10 MG TAB PO SCH ×5 (06:33→21:34)
--- NOTE | 2018-08-11 08:22 | GHP ---
[f rep st] HISTORY AND PHYSICAL DATE OF ADMISSION: 08/10/2018 SOURCE: Patient provides history, appears reliable. EMR was reviewed and case discussed with ED provider. Additionally, patient is able to pull up her patient portal records from [facility]. CHIEF COMPLAINT: Abdominal pain, nausea, vomiting, sweating, tachycardia, and tremor. HISTORY OF PRESENT ILLNESS: This is a pleasant 23-year-old female with a past medical history significant for Moon-Danlos syndrome, gastroparesis, seizures , chronic pain, headaches, endometriosis, pelvic congestion syndrome, dysautonomia, who presents to the emergency department today with complaints of intractable diffuse abdominal pain, nausea, vomiting, tremor, and tachycardia. Patient also notes that she developed significant diaphoresis. She does have a history of gastroparesis for which she was on a liquid supplemental diet only. She is not on tube feeds as she is normally able to keep down sips of dietary supplement in a shake. Patient reports that over the past several months, she has had progressive worsening symptoms of abdominal pain, intermittent nausea, vomiting; however, in the past week, she has had addition of diaphoresis, tachycardia, and a significant tremor. Patient is normally on Lorzone for intermittent tremor. Her dosing has not changed for this. Patient also was recently at [facility] ED on multiple occasions this week for her symptoms. She received IV fluid hydration, reports some improvement in her symptoms, and then returns home, is unable to the eat or drink, and then develops nausea, vomiting , and abdominal pain, and cycle continues. Patient did undergo CT scanning on both occasions in the ER, which did not reveal any acute findings in her abdomen. She was found to have bronchiolitis for which she followed up with her cushion sewer and was treated with Augmentin and steroids. Patient reports that her cough has resolved and she has no dyspnea. Patient reports chronic joint and muscle pain. No acute change in symptoms or myalgias. No rhinorrhea , sore throat, or productive cough. Patient reports additionally that she has had some new symptoms of lactating for the past several months. She has had a tubal and is not based on multiple tests. She relates this to initiation of Reglan for her nausea and vomiting. Patient also has Zofran available p.r.n. for her symptoms. REVIEW OF SYSTEMS: GENERAL: Negative for fevers, chills, but has had sweats. SKIN: No acute rashes or sores, but patient reports that she does have intermittent lower extremity edema related to her pelvic congestion syndrome. ENT: No rhinorrhea. Sore throat is improved from persistent coughing previously which is now resolved. EYES: No acute changes in vision or ocular pain. MUSCULOSKELETAL: Chronic diffuse pain. NEURO: Patient denies any focal deficits, numbness, or tingling. GI: See HPI. : No dysuria or hematuria. Patient does note that her previous labs have been positive for elevated ketones. PSYCH: Patient does report that she is becoming increasingly frustrated with her worsening symptoms and no obvious cause for the acute worsening. ALLERGIES: Nystatin, clonazepam, but patient does tolerate Valium, Levaquin, ranitidine, latex, nuts, Dermabond, paper tape. PAST MEDICAL HISTORY: Significant for Moon-Danlos syndrome, gastroparesis, chronic headaches, endometriosis, cerebellar tonsillar ectopia, dysautonomia, benzodiazepine dependence on taper, asthma, pelvic congestion syndrome, seizures , headaches, chronic pain. PAST SURGICAL HISTORY: BTL, port placement and then removal. FAMILY HISTORY: Brother with Moon-Danlos/marfanoid syndrome. SOCIAL HISTORY: Patient in room with significant other. She denies any alcohol intake. Occasional medical marijuana use. No tobacco use. CODE STATUS: Full. PHYSICAL EXAMINATION: VITAL SIGNS: Upon arrival, blood pressure is 130/91, heart rate is 106, respiratory rate 16, O2 sat 95% on room air, temperature 37.0. Vitals currently available: Blood pressure 111/78, heart rate 100 to 90s , respiratory rate 16, O2 sat 95% on room air, temperature 36.4. GENERAL: No acute distress. Pleasant young adult female, is sitting up in bed, awake. She does appear fatigued, but nontoxic. HEAD: Normocephalic, atraumatic. EYES: Extraocular muscles grossly intact. Pupils equal, round, symmetric. No scleral icterus or conjunctival injection. ENT: Mucous membranes appear slightly dry. No oropharyngeal erythema or exudates. No nasal discharge. NECK : Supple. Trachea midline. CV: Regular rate and rhythm. No murmurs, rubs, or gallops appreciated. RESPIRATORY: Lungs are clear to auscultation bilaterally. No wheezes, rales, or rhonchi. Some decreased inspiratory effort. ABDOMEN: Positive bowel sounds. Soft, nontender to palpation. No rebound, guarding, or masses. : No suprapubic tenderness to palpation. No Parr catheter in place. EXTREMITIES: Patient with trace lower extremity edema bilaterally and symmetric. 2+ pedal pulses. NEURO: Grossly nonfocal. Moves all extremities. No facial drooping. PSYCH: Affect slightly flat. Patient does appear fatigued, but she is otherwise pleasant and cooperative. LABORATORY STUDIES: WBCs on presentation 17.0, H and H 15.2 and 45.2, MCV of 88.8, platelet count is 369. Repeat WBCs are down to 13.3. Patient shows me a record from 08/09/2018, and her white count was 21,000. lactic acid 1.3. Sodium is 137, potassium is 3.8, chloride is 110, CO2 is 22, BUN 9, creatinine 0.6, GFR greater than 60, glucose 79, calcium is 9.0, magnesium 2.0, total bili 0.7, ALT is 57, AST is 33, alk phos 80. CK is 47. CRP is less than 5.0. Total protein 8.1, albumin is 4.9. TSH is 1.960, free T4 is 1.8, 73 is 4.17. Beta hCG is negative. Review of patient's outpatient laboratory studies: On 08/09/2018, WBCs 21.43, H and H 16.0 and 48.0, platelet count 410. TSH at that time was 0.882. She did have elevated free T4 and T3 on 08/09/2018, with a T4 of 2.54 and T3 of 8.07 which has now resolved. Estradiol is 309.9, LH 16.5, prolactin was elevated at 24.2, progesterone 2.59, cortisol p.m. 8.0. ASSESSMENT AND PLAN: Pleasant 23-year-old female with history of Moon-Danlos , gastroparesis, who presents to the emergency department today with complaints of intractable nausea, vomiting, abdominal pain. 1. Abdominal pain. Differential diagnosis includes gastroparesis, gastroenteritis, gastritis, without any evidence of obstruction, distention. More rare causes in consideration less likely to be porphyria or acute intraabdominal infectious process. Patient's WBC has declined. She is currently on D5. She has not had any additional nausea and vomiting. Continue with Reglan, Zofran p.r.n. Continue to encourage oral intake. Patient's blood sugars remain low normal. Will monitor closely for any recurrence of symptoms and try to assess her glucose level. PHUONG screen and urine studies have been ordered. Additionally, patient reported that she had urine metanephrines evaluated and were found to be negative. Will try to verify during the day shift. Currently, pain is stable without any exacerbation, but patient reports that it is still quite persistent. Supportive care and will try to minimize use of benzodiazepines and opiates. Patient does utilize occasional medical marijuana by her report. She does not use this on a daily basis, but also consideration for possible cannabinoid hyperemesis syndrome. Will additionally also consider withdrawal-type symptoms with her nausea, vomiting as she is on multiple medications with potential for withdrawal symptoms. 2. Nausea vomiting, currently improved. Continue Zofran, Reglan p.r.n. 3. Dehydration. Intravenous supplementation, status post 2 L of normal saline. Transition to D5 half-normal saline given patient's persistently declined blood sugars. 4. Tachycardia. Likely related to dehydration. Appears sinus on telemetry. 5. Tremor. Patient reports history of dysautonomia. She does take Lorzone she reports 4 times daily for her symptoms as well as Zanaflex and baclofen. 6. Asthma, without exacerbation. Continue to monitor. 7. Fluid, electrolytes, and nutrition. Status post 2 L of intravenous fluids. Continue with D5 half-normal saline. Advance diet as tolerated for patient's usual nutritional supplementation. 8. Code status full. 9. Disposition: Patient admitted to observation status on the med-surg floor for continued intravenous fluid hydration and symptomatic treatment. I did discuss with the patient that likely she will be discharged before her laboratory studies are returned as they are send out, and she should follow closely with her primary care physician, but I did advise her regarding the addition of urine and serum testing for autoimmune and more rare cause of abdominal pain, nausea, and vomiting. /[id number]/MODL MTDD
[2018-08-11] MEDS ORDERED: ALBUTEROL 3 ML DEYVIAL IH PRN (08:41)
[2018-08-11] MEDS ORDERED: Epinephrine [Epipen 0.3 Mg] 0.3 MG IM PRN (08:45)
[2018-08-11] MEDS ORDERED: Herbals/Supplements -Info Only PO SCH (09:00)
[2018-08-11] MEDS ORDERED: ONDANSETRON DISINTEGRATING 4 MG TAB PO PRN (09:27)
[2018-08-11] MEDS: CHLORZOXAZONE 500 MG PO SCH (09:45)
[2018-08-11] MEDS: PROMETHAZINE HCL 25 MG/ML INJ IVP PRN ×2 (11:38→20:08)
[2018-08-11] MEDS: ASPIRIN 81 MG CHEWABLE TAB PO SCH (12:07)
[2018-08-11] MEDS: DIAZEPAM 5 MG TAB PO SCH ×2 (12:08→21:34)
--- NOTE | 2018-08-11 15:02 | ASMTCMCOM ---
CM Note CM Note Notes: Pt with numerous co-morbidities in with N/V/D, abd pain which she reports has been progressively getting worse. Pt has been seen recently by PCP and [facility]. Pt has boyfriend for support. No therapies ordered now. Anticipate pt will d/c when medically stable. CM available for changes/needs. D/c plan of care: Likely independent Date Signed: 08/11/2018 03:02 PM Electronically Signed By:YAKOV Foreman
--- NOTE | 2018-08-11 15:22 | HOSPPROG ---
Hospitalist Progress Note Assessment/Plan: #N/V: DDx is progressive gastroparesis, THC hyperemesis syndrome, med side effects or mild BZ withdrawal (has been weaning off Valium -no infectious source identified -cortisol borderline; rosalva-stim test in morning -has GI appt #Leukocytosis: hemoconcentrated, improved with IVFs -infectious eval negative: CXR, resp panel, UA #Elevated thyroid studies: check TPO, thyroid antibodies #h/o thrombosis: PCP placed referral to Dr Bloom with [facility] #Sinus tachycardia: followed by Pneumatic Systems Operator. Recent holter shows tachy. He may trial BB; will discuss in clinic Direct time spent: 60 min bedside evaluating pt, educating her on med side effects and studies completed. Additional time d/w Dr Estes (PCP) on phone (9:00-9:30, 15:00-15:30) Disp: inpt admission for IVFs, antiemetics. DC in AM if clinically improved Subjective: mild nausesa still, sweats Objective: Vital Signs Temp Pulse Resp BP Pulse Ox 36.7 C 109 H 16 124/81 H 96 08/11/18 12:00 08/11/18 12:00 08/11/18 12:00 08/11/18 12:00 08/11/18 12:00 Laboratory Results 08/11/18 05:09 08/11/18 05:09 08/10/18 08/11/18 08/12/18 05:59 05:59 05:59 Intake Total 2150 Output Total 550 1000 Balance 1600 -1000 - Time Spent With Patient Time Spent with Patient: greater than 35 minutes Time Spent with Patient: Greater than 35 minutes spent on this patients care, greater than 50% of time spent counseling, educating, and coordinating care regarding the above mentioned plan. ICD10 Worksheet Patient Problems: Problems Problem Status Onset Abdominal pain Acute Vomiting and diarrhea Acute
[2018-08-11] MEDS: PROGESTERONE,MICR 100 MG CAP PO SCH (21:34)
[2018-08-11] MEDS: tiZANidine HCL 2 MG TAB PO SCH (21:35)
[2018-08-12] MEDS: PROMETHAZINE HCL 25 MG/ML INJ IVP PRN ×2 (04:09→09:45)
[2018-08-12] MEDS ORDERED: COSYNTROPIN 0.25 MG/2 ML SYRINGE IVP ONE (06:00)
[2018-08-12] MEDS: CHLORZOXAZONE 500 MG PO SCH (06:16)
[2018-08-12] MEDS: BACLOFEN 10 MG TAB PO SCH ×5 (06:16→21:34)
[2018-08-12] MEDS: CHOLECALCIFEROL VIT D3 1,000 UNITS TAB PO SCH (06:17)
[2018-08-12] MEDS: PYRIDOXINE HCL 100 MG TAB PO SCH (06:17)
[2018-08-12] MEDS: D5W 1/2 NS 1,000 ML IV SCH ×2 (07:25→18:21)
[2018-08-12] MEDS ORDERED: PROMETHAZINE HCL 25 MG/ML INJ IVP PRN (10:14)
[2018-08-12] MEDS: PANTOPRAZOLE SODIUM 40 MG TAB PO SCH (10:31)
[2018-08-12] MEDS: DIAZEPAM 5 MG TAB PO SCH ×2 (11:29→21:34)
[2018-08-12] MEDS: ASPIRIN 81 MG CHEWABLE TAB PO SCH (11:29)
[2018-08-12] MEDS ORDERED: HALOPERIDOL 0.5 MG TAB PO PRN (12:31)
[2018-08-12] MEDS: HALOPERIDOL 1 MG TAB PO PRN ×2 (15:39→21:35)
--- NOTE | 2018-08-12 16:06 | HOSPPROG ---
Hospitalist Progress Note Assessment/Plan: #N/V: DDx is progressive gastroparesis, THC hyperemesis syndrome, med side effects or mild BZ withdrawal (has been weaning off Valium -no infectious source identified -cortisol borderline; rosalva-stim tet outpatient (hosp out of med) -has GI appt tomorrow -AXR WNL -counseled on various alternatives for nausea; ok to trial Haldol. Qtc 460. Lytes stable -multiple conversations with she and boyfriend with expectation that evaluation will have to continue outpatient. No organic etiology identified after extensive testing here #Leukocytosis: hemoconcentrated, improved with IVFs -infectious eval negative: CXR, resp panel, UA #Elevated thyroid studies: check TPO, thyroid antibodies #h/o thrombosis: PCP placed referral to Dr Bloom with [facility] #Sinus tachycardia: followed by Inventory Management Specialist. Recent holter shows tachy. He may trial BB; will discuss in clinic Disp: inpt admission for IVFs, antiemetics. DC in AM if clinically improved Subjective: still c/o N/V Objective: Vital Signs Temp Pulse Resp BP Pulse Ox 36.6 C 62 18 107/60 92 08/12/18 11:38 08/12/18 11:38 08/12/18 11:38 08/12/18 11:38 08/12/18 11:38 Microbiology 08/11/18 16:41 Gastrointestinal Tract Panel (PCR) - Final Stool No Organism Detected By Pcr Laboratory Results 08/11/18 05:09 08/11/18 05:09 08/11/18 08/12/18 08/13/18 05:59 05:59 05:59 Intake Total 2150 1940 Output Total 550 1000 50 Balance 1600 940 -50 - Time Spent With Patient Time Spent with Patient: greater than 35 minutes Time Spent with Patient: Greater than 35 minutes spent on this patients care, greater than 50% of time spent counseling, educating, and coordinating care regarding the above mentioned plan. - Physical Exam Constitutional: no apparent distress Eyes: PERRL Ears, Nose, Mouth, Throat: moist mucous membranes Cardiovascular: regular rate and rhythym Respiratory: no respiratory distress Genitourinary: No peters in urethra Neurologic: AAOx3, CN II-XII Intact Psychiatric: flat affect ICD10 Worksheet Patient Problems: Problems Problem Status Onset Abdominal pain Acute Vomiting and diarrhea Acute
--- NOTE | 2018-08-12 16:26 | CPEKG ---
Test Reason : OPEN Blood Pressure : / mmHG Vent. Rate : 101 BPM Atrial Rate : 100 BPM P-R Int : 133 ms QRS Dur : 071 ms QT Int : 357 ms P-R-T Axes : 080 078 057 degrees QTc Int : 463 ms Sinus tachycardia Confirmed by Cabrera Elliott ([id number]) on 08/12/2018 4:25:49 PM Referred By: Yojana Marcum Confirmed By:Cabrera Elliott
[2018-08-12] MEDS: DEXAMETHASONE 4 MG/ML VIAL IVP SCH (18:18)
[2018-08-12] MEDS: PROMETHAZINE HCL 25 MG TAB PO PRN (18:30)
[2018-08-12] MEDS: tiZANidine HCL 2 MG TAB PO SCH (21:35)
[2018-08-12] MEDS: PROGESTERONE,MICR 100 MG CAP PO SCH (21:35)
[2018-08-13] MEDS: DEXAMETHASONE 4 MG/ML VIAL IVP SCH ×2 (01:51→05:31)
[2018-08-13] MEDS: D5W 1/2 NS 1,000 ML IV SCH (05:03)
[2018-08-13] MEDS: BACLOFEN 10 MG TAB PO SCH (06:24)
[2018-08-13] MEDS: PANTOPRAZOLE SODIUM 40 MG TAB PO SCH (06:24)
[2018-08-13] MEDS: CHOLECALCIFEROL VIT D3 1,000 UNITS TAB PO SCH (06:24)
[2018-08-13] MEDS: PYRIDOXINE HCL 100 MG TAB PO SCH (06:24)
[2018-08-13] MEDS: CHLORZOXAZONE 500 MG PO SCH (06:25)
[2018-08-13 08:27] VITALS: BP 118/74
--- NOTE | 2018-08-13 08:41 | PDMN ---
Medical Necessity Medical necessity: Change to IP, as of 08/12/18, per MD & MCG M-370; los >2 mn for ongoing management of persistent vomiting & nausea w/sinus tachycardia; requiring further monitoring, IVFs, IV antiemetics, Haldol trial & Integrative Care consult
[2018-08-13] MEDS: PROMETHAZINE HCL 25 MG TAB PO PRN (09:02)
--- NOTE | 2018-08-13 10:16 | GDS ---
[f rep st] DISCHARGE SUMMARY DISCHARGE DIAGNOSES: 1. Intractable nausea, vomiting. 2. Tremors/spasms. 3. Leukocytosis. 4. Elevated thyroid studies. 5. History of thrombosis. 6. Sinus tachycardia. 7. Moon-Danlos syndrome. 8. Gastroparesis. 9. Chronic headaches. 10. Endometriosis. 11. Cerebellar tonsillar ectopia. 12. Dysautonomia. 13. Benzodiazepine dependence on taper. 14. Asthma. 15. Pelvic congestion syndrome. 16. Seizures. 17. Headaches. HISTORY OF PRESENT ILLNESS: A pleasant 23-year-old female, with Moon-Danlos syndrome, gastroparesi s, seizures, chronic pain, dysautonomia, presents to the ER with intractable diffuse abdominal pain, nausea, vomiting, tremor and tachycardia. She also complains of diffuse diaphoresis. She has a hist ory of gastroparesis for which she is on a liquid diet only. Over the past several months, she has h ad progressive symptoms and abdominal pain. She is on lower zone for intermittent tremor. This has not changed. She has been weaning off Valium . Denies constipation or diarrhea. HOSPITAL COURSE BY PROBLEM: 1. Abdominal pain: Differential is gastroparesis, gastroenteritis, gastritis. There is no evidence of obstruction or ileus on x-ray. She is nontender on exam. PHUONG is negative. 2. Intractable nausea, vomiting: Broad differential with gastroparesis, THC hyperemesis syndrome or medication side effects. She is on multiple muscle relaxers and medications that can cause nausea, vomiting. She has been weaning down on Valium, which could be causing mild benzo withdrawal. There is no infectious source identified. She had a borderline cortisol here. Attempted Taj stim test, b ut we did not have the medications. Would recommend this as an outpatient. She has a followup with GI appointment today. Offered several antiemetics including Zyprexa, dexamethasone. She did try Delgado dol with some improvement, but preferred to take Phenergan, which I have prescribed. Her electrolyte s are within normal. She is to follow up with her PCP for EKG next week. 3. Leukocytosis: Suspect hemoconcentrated. This improved with IV fluids. Infectious evaluation wa s negative including chest x-ray, respiratory panel, and UA. 4. Elevated thyroid studies: Check thyroid auto antibodies panel. This is pending. 5. History of thrombosis. PCP placed referral to Dr. Bloom with [facility]. 6. Sinus tachycardia. This is not new. She had a recent Holter monitor that showed tachycardia. H er investment sales assistant may trial beta min. She has an appointment August 26. 7. Healthcare maintenance: I had a lengthy discussion with her PCP, Dr. Estes, who also agrees wi th likely medications. Withdrawal could be potential etiology, but we both agree she should continue to wean off Valium. I counseled patient and her boyfriend on weaning off some of these muscle relax ers as have compound side effects. DISPOSITION: Patient stable for discharge. FOLLOWUP: 1. Dr. Estes. 2. Primary investment sales assistant. 3. Primary shake out worker. 4. Open Pit Quarry Supervisor. 5. Recommend outpatient Taj stim test. 6. Labs pending: Thyroid panel. PHYSICAL EXAMINATION: VITAL SIGNS: Today, temperature 36.7 blood pressure 118/74, heart rate is in the 80s, respirations 12, 96% on room air. GENERAL: Sitting up. No acute distress. HEENT: PERRLA . Moist mucous membranes. CV: Regular rate and rhythm. LUNGS: Clear. ABDOMEN: Soft. Mild tend erness throughout, but no rebound, guarding. Positive bowel sounds. : No Parr. MUSCULOSKELETAL : She is moving all 4 extremities. NEURO: 2 through 12 intact. PSYCH: Alert and oriented x3. TIME SPENT: Greater than 30 minutes counseling patient/boyfriend on medications, followup plan, and coordinating discharge. /[id number]/MODL
--- NOTE | 2018-08-13 14:22 | ASMTDCNOTE ---
Case Management Discharge Discharge Order Complete? Answers: Yes Patient to Obtain Answers: via Family Medications Transportation Arranged Answers: Family/Friends Transport will Pick (Date 08/13/2018 12:00 AM & Time) Family Notified Answers: Yes Notes: by pt Discharge Comments Notes: Pt discharged independently with support from boyfriend. No CM needs noted at this time. CM available should needs change. Date Signed: 08/13/2018 02:22 PM Electronically Signed By:Mira Monique
--- NOTE | 2018-08-13 14:26 | ASDISCHSUM ---
Discharge Information Plan Status:Home with No Needs Medically Cleared to Leave:08/12/2018 Discharge Date:08/13/2018 10:04 AM CM D/C Disposition:Home, Routine, Self-Care ADT D/C Disposition:Home, Routine, Self-Care Projected Discharge Date:08/13/2018 10:04 AM Transportation at D/C:Family Discharge Delay Reason: Follow-Up Date:08/13/2018 10:04 AM Discharge Slot: Final Diagnosis:nausea, vomit, abd pain Placement Information Patient Contact Information Contact Name:GODWIN Relationship:Other Address: Work Phone: City: [facility] Phone: State/Zip Code: Email: Financial Information Financial Class:Medicaid Primary Plan Desc:[employer] FIRST PSYCHOLOGY PROFESSOR Primary Plan Number:[id number] Secondary Plan Desc: Secondary Plan Number: Assessment Information LACE LACE Length of stay for Answers: 3 days current admission Acuity / Level of Answers: Yes Care: Did the patient have an inpatient admission? Comorbidities - select Answers: Opioid dependence all that apply / Chronic pain # of Emergency department Answers: 1-2 visits in the last 6 months Score: 11 Date Signed: 08/13/2018 02:25 PM Electronically Signed By:Mira Monique [facility] CM Progress Note CM Note CM Note Notes: Pt with numerous co-morbidities in with N/V/D, abd pain which she reports has been progressively getting worse. Pt has been seen recently by PCP and [facility] ED. Pt has boyfriend for support. No therapies ordered now. Anticipate pt will d/c when medically stable. CM available for changes/needs. D/c plan of care: Likely independent Date Signed: 08/11/2018 03:02 PM Electronically Signed By:YAKOV Foreman Case Management Discharge Plan Note Case Management Discharge Discharge Order Complete? Answers: Yes Patient to Obtain Answers: via Family Medications Transportation Arranged Answers: Family/Friends Transport will Pick (Date 08/13/2018 12:00 AM & Time) Family Notified Answers: Yes Notes: by pt Discharge Comments Notes: Pt discharged independently with support from boyfriend. No CM needs noted at this time. CM available should needs change. Date Signed: 08/13/2018 02:22 PM Electronically Signed By:Mira Monique Intervention Information Intervention Type:*Incorrect Registration Date of Service:08/10/2018 09:09 PM Patient Type:Observation Staff Member:CHRISTIANO Malik Courtney Hours: Discipline: Severity: Comment:
--- NOTE | 2018-08-13 14:28 | ASMTCMCOM ---
CM Note CM Note Notes: ADDENDUM: Pt connected with Kamla from [facility] before discharge. Kamla visited with her in the room today before discharge. Date Signed: 08/13/2018 02:27 PM Electronically Signed By:Mira Monique
== END 2018-08-13 10:04 | disposition home or self-care (01) | DRG 249 ==
LOC: INTOOBSV 22:59 → F3E 08-11 00:33 → OBSVTOIN 08-12 15:29
PROVIDERS: ADMIT Family Medicine; ATTEND Family Medicine
DX: R11.2 Nausea with vomiting, unspecified (principal); K31.84 Gastroparesis; F13.239 Sedative, hypnotic or anxiolytic dependence with withdrawal, unspecified; Q79.6 Ehlers-Danlos syndromes; G40.909 Epilepsy, unspecified, not intractable, without status epilepticus; G89.29 Other chronic pain; G90.1 Familial dysautonomia [Riley-Day]; R00.0 Tachycardia, unspecified; N80.9 Endometriosis, unspecified; J45.909 Unspecified asthma, uncomplicated; N94.89 Other specified conditions associated with female genital organs and menstrual cycle; R51 Headache; Z86.718 Personal history of other venous thrombosis and embolism; Z87.891 Personal history of nicotine dependence
CPT/HCPCS: 80305; 84481-90; 86376-90; 86800-90; 96374; G0378; J2405; J2550